=== PATIENT | male | born 1965 | race Caucasian/White ===

== ENCOUNTER 2019-09-23 10:12 | Emergency (ER) | payer BC ==
[2019-09-23 10:23] VITALS: BP 166/90
--- NOTE | 2019-09-23 10:52 | ED Physician Documentation ---
History of Present Illness - Stated complaint Stated Complaint: R LEG PX - Chief complaint Chief Complaint: Ext Problem - History obtained from History obtained from: Patient - History of Present Illness Timing: Today Pain level max: 0 Pain level now: 0 - Additonal information Additional information: Patient with a right lower extremity DVT. He is out of his Eliquis and requesting a refill. No shortness of breath. No chest pain. Nothing makes it better or worse. Review of Systems Constitutional: denies: Fever, Chills Respiratory: denies: Cough GI: denies: Nausea, Vomiting, Diarrhea Skin: denies: Rash Musculoskeletal: denies: Neck pain, Back pain Neurologic: denies: Headache PD PAST MEDICAL HISTORY - Past Medical History Past Medical History: Yes Cardiovascular: Deep vein thrombosis Endocrine/Autoimmune: Type 1 diabetes - Present Medications Home Medications: Ambulatory Orders Medication Instructions Recorded Confirmed Apixaban [Eliquis] 5 mg PO BID #60 tablet 09/23/19 Insulin Glargine [Lantus Solostar] 20 unit SQ DAILY PM 09/23/19 09/23/19 metFORMIN [Glucophage] 500 mg PO BIDWM 09/23/19 09/23/19 - Allergies Allergies/Adverse Reactions: Allergies Allergy/AdvReac Type Severity Reaction Status Date / Time No Known Drug Allergies Allergy Verified 09/23/19 10:22 - Living Situation Living Arrangement: reports: At home - Family History Family history: reports: Non contributory PD ED PE NORMAL - Vitals Vital signs reviewed: Yes - General General: Alert and oriented X 3, No acute distress, Well developed/nourished - HEENT HEENT: Moist mucous membranes - Neck Neck: Supple, no meningeal sign - Derm Derm: Warm and dry - Extremities Extremities: No edema, No calf tenderness / cord - Neuro Neuro: Alert and oriented X 3 - Psych Psych: Normal mood, Normal affect Results - Vitals Vitals: Vital Signs - 24 hr 09/23/19 10:19 Temperature 36.8 C Heart Rate 79 Respiratory 17 Rate Blood Pressure 166/90 H O2 Saturation 100 Oxygen O2 Source Room air PD MEDICAL DECISION MAKING - ED course Complexity details: considered differential, d/w patient ED course: We will give him a month supply of his Eliquis [place] No other acute emergency medical condition at this time. This document was made in part using voice recognition software. While efforts are made to proofread this document, sound alike and grammatical errors may occur. Departure - Departure Disposition: 01 Home, Self Care Clinical Impression: Deep vein thrombosis Qualifiers: DVT location: lower extremity Affected thrombotic vein of extremity: femoral Chronicity: acute Laterality: right Qualified Code(s): I82.411 - Acute embolism and thrombosis of right femoral vein Condition: Good Instructions: ED DVT Follow-Up: [facility] [Provider Group] [facility] [Provider Group] Prescriptions: Apixaban [Eliquis] 5 mg PO BID #60 tablet Comments: Continue the Eliquis at home. Follow-up with a primary care provider within the next month for further care. Return if you worsen. Discharge Date/Time: 09/23/19 10:59
== END 2019-09-23 10:59 | disposition home or self-care (01) ==
LOC: ED 10:12
DX: I82.411 Acute embolism and thrombosis of right femoral vein (principal); Z79.01 Long term (current) use of anticoagulants; Z76.0 Encounter for issue of repeat prescription; E10.9 Type 1 diabetes mellitus without complications
CPT/HCPCS: 99282; 99284

== ENCOUNTER 2019-12-27 23:34 | Emergency (ER) | payer BC ==
--- NOTE | 2019-12-28 00:26 | ED Physician Documentation ---
PD HPI SKIN - Stated complaint Stated Complaint: R FOOT INFECTION - Chief complaint Chief Complaint: Ext Problem - History obtained from History obtained from: Patient - History of Present Illness Timing - onset: How many weeks ago (He has had a poorly healing ulcer on the dorsum of the right great toe for months. He was seen couple weeks ago with redness around the area. He states he is also out of his medications including Lantus and insulin. He had had less redness to it and was looking better. Off antibiotics now.) Timing - details: Gradual onset, Still present Location: RLE (great toe dorsally) Quality / character: Painful, Discolored (redness for several days), Draining (mildly). No: Swelling Associated symptoms: No: Fever, Myalgias, N/V/D Similar symptoms before: Diagnosis (chronic ulcer of toe.) Recently seen: Emergency Dept. No: Clinic (has not made appt with local PCP as yet. Was unable to get Rx filled from recent ER visit as his insurance did not cover it, so only got the antibiotic.) Review of Systems Constitutional: reports: Myalgias. denies: Fever, Chills Nose: denies: Rhinorrhea / runny nose, Congestion Throat: denies: Sore throat Respiratory: denies: Cough GI: denies: Nausea, Vomiting, Constipation, Diarrhea : denies: Dysuria, Frequency PD PAST MEDICAL HISTORY - Past Medical History Past Medical History: No Cardiovascular: Deep vein thrombosis Respiratory: None Neuro: None Endocrine/Autoimmune: Type 1 diabetes GI: None : None HEENT: None Psych: None Musculoskeletal: None, Other (no history of gout. ) - Past Surgical History Past Surgical History: Yes - Present Medications Home Medications: Ambulatory Orders Medication Instructions Recorded Confirmed Apixaban [Eliquis] 5 mg PO BID #60 tablet 11/06/19 Clindamycin HCl [Clindamycin 300MG 300 mg PO Q6H #40 capsule 11/06/19 CAP] Lisinopril [Prinivil] 10 mg PO DAILY #30 tab 11/06/19 metFORMIN [Glucophage] 500 mg PO BIDWM #60 tab 11/06/19 Doxycycline Monohydrate 100 mg PO BID #20 tablet 12/28/19 Insulin Glargine [Lantus Solostar] 20 unit SQ DAILY PM #1 unit 09/16/20 Mupirocin 1 applic TP TID #15 g 12/28/19 - Allergies Allergies/Adverse Reactions: Allergies Allergy/AdvReac Type Severity Reaction Status Date / Time No Known Drug Allergies Allergy Verified 12/28/19 00:05 - Social History Does the pt smoke?: Yes Smoking Status: Current every day smoker Does the pt drink ETOH?: No Does the pt have substance abuse?: No - Immunizations Immunizations are current?: Yes - POLST Patient has POLST: No PD ED PE NORMAL - Vitals Vital signs reviewed: Yes - General General: Alert and oriented X 3, No acute distress, Well developed/nourished - Cardiac Cardiac: RRR, No murmur - Respiratory Respiratory: Clear bilaterally - Derm Derm: Normal color, Warm and dry - Extremities Extremities: Other (Dorsum of the right great toe shows a 1 cm diameter ulcerative lesion to the fatty tissue with some skin at the edge that I trimmed away. Faint moisture discharge in the recess. Culture obtained. There is surrounding redness and swelling of the toe and the dorsum of the foot.) - Neuro Neuro: Alert and oriented X 3, No motor deficit, Normal speech, Other (moderately less sensation in feet generally. No edema of legs. ) Results - Vitals Vitals: Vital Signs - 24 hr 12/27/19 12/28/19 12/28/19 23:58 00:42 02:03 Temperature 36.9 C 36.8 C Heart Rate 76 69 Respiratory 14 16 18 Rate Blood Pressure 165/86 H 127/68 O2 Saturation 98 100 12/28/19 02:37 Temperature Heart Rate Respiratory 17 Rate Blood Pressure O2 Saturation Oxygen O2 Source Room air - Labs Labs: Microbiology 12/28/19 00:35 Wound Culture - Preliminary Toe - Right Big Laboratory Tests 12/28/19 12/28/19 12/28/19 00:50 00:50 00:50 WBC 10.4 RBC 5.17 Hgb 15.4 Hct 44.7 MCV 86.5 MCH 29.8 MCHC 34.5 RDW 11.7 L Plt Count 223 MPV 10.3 Neut # (Auto) 6.9 H Lymph # (Auto) 2.7 [place] # (Auto) 0.5 Eos # (Auto) 0.2 Baso # (Auto) 0.1 Absolute Nucleated RBC 0.00 Nucleated RBC % 0.0 ESR 25 H Sodium 133 L Potassium 4.1 Chloride 98 L Carbon Dioxide 26 Anion Gap 9.0 BUN 11 Creatinine 0.8 Estimated GFR (MDRD) 101 Glucose 445 H Calcium 9.2 Magnesium 1.9 Total Bilirubin 0.4 AST 12 ALT 15 Alkaline Phosphatase 112 Total Protein 6.8 Albumin 3.4 Globulin 3.4 Albumin/Globulin Ratio 1.0 Lipase 83 H - Rads (name of study) toe Radiology: Prelim report reviewed (no bony lesions), See rad report PD MEDICAL DECISION MAKING - ED course Complexity details: reviewed results, considered differential, d/w patient Departure - Departure Disposition: 01 Home, Self Care Clinical Impression: Hyperglycemia, Cellulitis of foot Diabetes Qualifiers: Diabetes mellitus type: type 2 Diabetes mellitus intermodal owner operator truck driver insulin use: with intermodal owner operator truck driver use Diabetes mellitus complication status: with skin complications Diabetes mellitus complication detail: with foot ulcer Qualified Code(s): E11.621 - Type 2 diabetes mellitus with foot ulcer Toe ulcer due to DM Qualifiers: Diabetes mellitus type: type 2 Laterality: right Non-pressure ulcer stage: with fat layer exposed Qualified Code(s): E11.621 - Type 2 diabetes mellitus with foot ulcer Condition: Stable Record reviewed to determine appropriate education?: Yes Instructions: Diabetic Foot Ulcer Dc, ED Infec Skin Cellulitis Follow-Up: [facility] [Provider Group] [facility] [Provider Group] Prescriptions: Doxycycline Monohydrate 100 mg PO BID #20 tablet Insulin Glargine [Lantus Solostar] 20 unit SQ DAILY PM #1 unit Mupirocin 1 applic TP TID #15 g Comments: Warm soaks for the foot couple of times a day. Apply mupirocin antibiotic ointment lightly to the area with dry dressing. Doxycycline antibiotic twice daily for the next 10 days. The culture we did of the toe should result in a couple of days and will tell us if we need to change the antibiotics. We will call you if we need to change them. Follow-up with a local primary care, call for soonest appointments and I provided a couple of clinic numbers. 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 I understand issue with the insurance coverage but your blood sugar is fairly high and the high sugars inhibit healing of the wound. Recheck if not improving over the next several days or worsening, otherwise follow-up with primary care. Discharge Date/Time: 12/28/19 02:38
[2019-12-28] MEDS: NAPROXEN 250 MG TABLET PO STA (00:52)
[2019-12-28] MEDS: DOXYCYCLINE 100 MG TABLET PO STA (00:52)
[2019-12-28] MEDS: MUPIROCIN 2% OINT 1 GM TOP STA (00:53)
[2019-12-28 01:02] LABS: BASOPHILS # (AUTO) 0.1 10^3/uL (0.0-0.1); BASOPHILS % (AUTO) 0.8 %; EOSINOPHILS # (AUTO) 0.2 10^3/uL (0.0-0.7); EOSINOPHILS % (AUTO) 2.3 %; HGB - HEMOGLOBIN 15.4 g/dL (14.0-18.0); LYMPHOCYTES # (AUTO) 2.7 10^3/uL (1.5-3.5); LYMPHOCYTES % (AUTO) 26.1 %; MEAN CORPUSCULAR HEMOGLOBIN 29.8 pg (27.0-31.0); MEAN CORPUSCULAR HGB CONC 34.5 g/dL (32.0-36.0); MEAN CORPUSCULAR VOLUME 86.5 fL (80.0-94.0); MEAN PLATELET VOLUME 10.3 fL (7.4-11.4); MONOCYTES # (AUTO) 0.5 10^3/uL (0.0-1.0); MONOCYTES % (AUTO) 4.8 %; NEUTROPHILS # (AUTO) 6.9 10^3/uL (1.5-6.6); NEUTROPHILS % (AUTO) 65.7 %; PLT - PLATELET COUNT 223 10^3/uL (130-450); RED BLOOD COUNT 5.17 10^6/uL (4.70-6.10); RED CELL DISTRIBUTION WIDTH 11.7 % (12.0-15.0); WHITE BLOOD COUNT 10.4 x10^3/uL (4.8-10.8)
[2019-12-28 01:14] LABS: ALBUMIN 3.4 g/dL (3.2-5.5); BILIRUBIN,TOTAL 0.4 mg/dL (0.2-1.0); CALCIUM 9.2 mg/dL (8.5-10.3); CREATININE 0.8 mg/dL (0.6-1.2); MAGNESIUM 1.9 mg/dL (1.7-2.8); TOTAL PROTEIN 6.8 g/dL (6.7-8.2)
[2019-12-28 02:04] VITALS: BP 127/68
--- NOTE | 2019-12-28 08:26 | XRAY Report ---
PROCEDURE: Toe(s) RT INDICATIONS: chronic great toe infection TECHNIQUE: 3 views of the first toe(s) acquired. COMPARISON: None FINDINGS: Bones: No fractures or dislocations. No suspicious bony lesions. Soft tissues: No suspicious soft tissue densities. IMPRESSION: No visualized erosions. No visualized acute fracture or dislocation. However, occult injury cannot be excluded. Recommend short interval imaging follow-up in 7-10 days as clinically indicated for additi onal evaluation. Reviewed by: Jacqui Brown MD on 12/28/2019 8:25 AM PDT Approved by: Jacqui Brown MD on 12/28/2019 8:25 AM PDT Station ID: [id number]
[2019-12-28 11:51] LABS: HEMOGLOBIN A1c% 12.5 % (4.27-6.07)
== END 2019-12-28 02:38 | disposition home or self-care (01) ==
LOC: ED 23:34
DX: L03.031 Cellulitis of right toe (principal); E11.621 Type 2 diabetes mellitus with foot ulcer; L97.512 Non-pressure chronic ulcer of other part of right foot with fat layer exposed; E11.65 Type 2 diabetes mellitus with hyperglycemia; Z79.4 Long term (current) use of insulin; F17.200 Nicotine dependence, unspecified, uncomplicated; Z86.718 Personal history of other venous thrombosis and embolism; Z79.01 Long term (current) use of anticoagulants; Z79.84 Long term (current) use of oral hypoglycemic drugs
CPT/HCPCS: 36415; 73660; 80053; 83036; 83690; 83735; 85025; 85651; 87070; 87205; 99283; 99284; A9270; 87077

== ENCOUNTER 2020-10-06 18:54 | Emergency (ER) | payer BC ==
[2020-10-06 19:16] VITALS: BP 142/79
[2020-10-06] MEDS ORDERED: HYDROcod/ACET 5/325 Prepack 4 PO STA (19:45)
[2020-10-06] MEDS ORDERED: AMOX/CLAV 875 MG/125 MG TABLET PO STA (19:45)
--- NOTE | 2020-10-06 19:47 | ED Physician Documentation ---
History of Present Illness - Stated complaint Stated Complaint: MOUTH PX/SWELLING - Chief complaint Chief Complaint: Heent - History obtained from History obtained from: Patient - Additonal information Additional information: 55-year-old gentleman has been having ongoing issues with dental pain, unable to see a dentist. Last 4 days pain from left maxillary canine has been severe with sensation of swelling there but no fevers. 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 - Past Surgical History Past Surgical History: Yes - Present Medications Home Medications: Ambulatory Orders Medication Instructions Recorded Confirmed Apixaban [Eliquis] 5 mg PO BID #60 tablet 11/06/19 Clindamycin HCl [Clindamycin 300MG 300 mg PO Q6H #40 capsule 11/06/19 CAP] lisinopriL [Prinivil] 10 mg PO DAILY #30 tab 11/06/19 metFORMIN [Glucophage] 500 mg PO BIDWM #60 tab 11/06/19 Doxycycline Monohydrate 100 mg PO BID #20 tablet 12/28/19 Insulin Glargine [Lantus Solostar] 20 unit SQ DAILY PM #1 unit 12/28/19 Mupirocin 1 applic TP TID #15 g 12/28/19 Amox/Clav 875/125 [Augmentin] 1 each PO Q12H #20 tablet 10/06/20 HYDROcod/ACETAM 5/325 [Arvilla 5/325] 1 - 2 tab PO Q6H PRN #15 tablet 10/06/20 - Allergies Allergies/Adverse Reactions: Allergies Allergy/AdvReac Type Severity Reaction Status Date / Time No Known Drug Allergies Allergy Verified 10/06/20 19:13 - Social History Does the pt smoke?: Yes Smoking Status: Current every day smoker Does the pt drink ETOH?: No Does the pt have substance abuse?: No - Immunizations Immunizations are current?: Yes - POLST Patient has POLST: No PD ED PE NORMAL - Vitals Vital signs reviewed: Yes - General General: Alert and oriented X 3, No acute distress - HEENT HEENT: PERRL, EOMI, Other (Generally carious teeth, tender canine on the left maxilla without obvious swelling trismus or facial cellulitis.) - Neck Neck: No bony TTP - Neuro Neuro: Alert and oriented X 3, Normal speech Results - Vitals Vitals: Vital Signs - 24 hr 10/06/20 19:13 Temperature 36.9 C Heart Rate 95 Respiratory 16 Rate Blood Pressure 142/79 H O2 Saturation 95 Oxygen O2 Source Room air PD MEDICAL DECISION MAKING - ED course ED course: I am prescribing a short course of short-acting opioid pain medication for this patient. 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 I have discussed that the opioids are for short term therapy only, and will not be refilled from the ED. Departure - Departure Disposition: 01 Home, Self Care Clinical Impression: Pain due to dental caries Condition: Good Record reviewed to determine appropriate education?: Yes Instructions: ED Tooth Pain Prescriptions: Amox/Clav 875/125 [Augmentin] 1 each PO Q12H #20 tablet HYDROcod/ACETAM 5/325 [Arvilla 5/325] 1 - 2 tab PO Q6H PRN #15 tablet PRN Reason: Pain Comments: It is very important that you follow-up with a dentist. When it comes to dental problems like yours, the emergency department can only offer a short-term solution to your long-term problem. A couple of low cost options for dental care include: [facility] in [place], calls [phone] for an appointment Or [facility] in [place], call [phone] for an appointment. I am prescribing a short course of narcotic pain medication for you. These are potentially dangerous and addictive medications that should be used carefully. These medications may constipate you. Take an [id number] stool softener (docusate) twice daily with plenty of water while taking these medications. If you go 24 hours without a bowel movement, take [id number] miralax, per package instructions. Do not drink or drive while taking these medications. If you received narcotic or sedating medications while in the emergency department, do not drive for 24 hours. Store this medication in a safe, secure place and out of reach of children. It is a violation of federal law to give or sell this medication to another person or to use in a manner other than prescribed. The ED will not refill narcotic prescriptions, including prescriptions lost or stolen. To dispose of unwanted medications: 1. [facility] at [address] in [place] has a medication drop box. They accept prescription medications (in pill form) Thursday through Thursday 9:00 a.m. to 5:00 p.m. 2. [facility] accepts prescription medications (in pill form only) for disposal year round. Call for more information. 3. Contact the [facility] for the next [facility] sponsored prescription drug collection event. , [phone], or [phone]; Note that many narcotic pain relievers also contain Tylenol/acetaminophen. Please ensure that your total dose of acetaminophen from all sources does not exceed 3 g (3000 mg) per day.
== END 2020-10-06 20:03 | disposition home or self-care (01) ==
LOC: ED 18:54
DX: K02.9 Dental caries, unspecified (principal); Z86.718 Personal history of other venous thrombosis and embolism; Z79.01 Long term (current) use of anticoagulants; E11.9 Type 2 diabetes mellitus without complications; Z79.84 Long term (current) use of oral hypoglycemic drugs; F17.200 Nicotine dependence, unspecified, uncomplicated
CPT/HCPCS: 99282; 99283; A9270

== ENCOUNTER 2020-11-14 00:53 | Emergency (ER) | payer BC ==
[2020-11-14] MEDS ORDERED: ACETAMINOPHEN 325 MG TABLET PO STA (00:56)
[2020-11-14] MEDS ORDERED: ACETAMINOPHEN 325 MG TABLET PO ONE (01:23)
[2020-11-14] MEDS ORDERED: oxyCODONE/ACET 5/325 Prepack 4 PO STA (01:32)
[2020-11-14] MEDS ORDERED: KETOROLAC 30 MG/ML VIAL IM STA (01:32)
--- NOTE | 2020-11-14 01:34 | ED Physician Documentation ---
History of Present Illness - Stated complaint Stated Complaint: TOOTH PX - Chief complaint Chief Complaint: Heent - History obtained from History obtained from: Patient - Additonal information Additional information: 55-year-old man with history of chronic dental pain presents with 2 years of throbbing intermittent dental pain that worsened acutely this evening said he cannot sleep. He states it is worse in the right lower teeth and the left upper teeth are he has multiple broken and rotten teeth. denies fevers, difficulty with secretions, soa, throat tightness or swelling. Review of Systems Throat: reports: Dental pain / toothache PD PAST MEDICAL HISTORY - Past Medical History Past Medical History: Yes Cardiovascular: Deep vein thrombosis Respiratory: None Neuro: None Endocrine/Autoimmune: Type 2 diabetes GI: None : None HEENT: None Psych: None Musculoskeletal: None, Other - Past Surgical History Past Surgical History: Yes - Present Medications Home Medications: Ambulatory Orders Medication Instructions Recorded Confirmed lisinopriL [Prinivil] 10 mg PO DAILY #30 tab 11/06/19 metFORMIN [Glucophage] 500 mg PO BIDWM #60 tab 11/06/19 Insulin Glargine [Lantus Solostar] 20 unit SQ DAILY PM #1 unit 12/28/19 - Allergies Allergies/Adverse Reactions: Allergies Allergy/AdvReac Type Severity Reaction Status Date / Time No Known Drug Allergies Allergy Verified 11/14/20 01:17 - Social History Does the pt smoke?: Yes Smoking Status: Current every day smoker Does the pt drink ETOH?: No Does the pt have substance abuse?: No - Immunizations Immunizations are current?: Yes - POLST Patient has POLST: No PD ED PE NORMAL - Vitals Vital signs reviewed: Yes - General General: Alert and oriented X 3, No acute distress, Well developed/nourished - HEENT HEENT: Atraumatic, PERRL, EOMI, Other (Extremely poor dentition with multiple cracked teeth and an aphthous ulcer evident in the left upper first molar periodontal area) - Respiratory Respiratory: Other (Breathing normally, tolerating secretions.) Results - Vitals Vitals: Vital Signs - 24 hr 11/14/20 01:06 Temperature 36.9 C Heart Rate 69 Respiratory 16 Rate Blood Pressure 138/69 H O2 Saturation 98 Oxygen O2 Source Room air PD MEDICAL DECISION MAKING - ED course ED course: Offered periodontal block but patient declined, stating that he has concerns about needles and mouth. Provided pain medication for him to go home with to tide him over tonight until he can get into see a dentist. Strict return precautions given. Patient will follow up outpatient. Departure - Departure Disposition: 01 Home, Self Care Clinical Impression: Pain, dental, Aphthous ulcer of mouth Condition: Good Instructions: ED Tooth Pain Comments: You were seen in the emergency department for dental pain and found to have an aphthous ulcer in the gingiva of your mouth near a bad tooth. You need to see a dentist as soon as possible. Please return to the emergency department if you experience a temperature higher than 100.4, have difficulty breathing, or have any other concerns or new or worsening symptoms.
[2020-11-14 01:48] VITALS: BP 133/62
== END 2020-11-14 01:48 | disposition home or self-care (01) ==
LOC: ED 00:53
DX: Z86.718 Personal history of other venous thrombosis and embolism (principal); Z79.4 Long term (current) use of insulin; E11.9 Type 2 diabetes mellitus without complications; K12.0 Recurrent oral aphthae; F17.200 Nicotine dependence, unspecified, uncomplicated
CPT/HCPCS: 96372; 99281; 99283; A9270

== ENCOUNTER 2021-04-23 19:06 | Emergency (ER) | payer BC ==
[2021-04-23] MEDS ORDERED: ONDANSETRON 4 MG/2 ML VIAL IVP STA (19:34)
[2021-04-23] MEDS ORDERED: SODIUM CHLORIDE 0.9% 1,000 ML IV STA (19:35)
[2021-04-23 19:43] LABS: BASOPHILS % (AUTO) 0.2 %; EOSINOPHILS % (AUTO) 0.2 %; HCT - HEMATOCRIT 46.3 % (42.0-52.0); HGB - HEMOGLOBIN 17.2 g/dL (14.0-18.0); LYMPHOCYTES # (AUTO) 2.2 10^3/uL (1.5-3.5); LYMPHOCYTES % (AUTO) 13.7 %; MEAN CORPUSCULAR HEMOGLOBIN 30.4 pg (27.0-31.0); MEAN CORPUSCULAR HGB CONC 37.1 g/dL (32.0-36.0); MEAN CORPUSCULAR VOLUME 81.8 fL (80.0-94.0); MEAN PLATELET VOLUME 11.2 fL (7.4-11.4); MONOCYTES # (AUTO) 0.9 10^3/uL (0.0-1.0); MONOCYTES % (AUTO) 5.5 %; NEUTROPHILS # (AUTO) 12.9 10^3/uL (1.5-6.6); NEUTROPHILS % (AUTO) 79.8 %; PLT - PLATELET COUNT 229 10^3/uL (130-450); RED BLOOD COUNT 5.66 10^6/uL (4.70-6.10); RED CELL DISTRIBUTION WIDTH 11.9 % (12.0-15.0); WHITE BLOOD COUNT 16.2 x10^3/uL (4.8-10.8)
[2021-04-23 19:51] LABS: VBG BASE EXCESS 2.6 mmol/L (-2 - +2); VBG OXYGEN SATURATION 75.1 % (60-80); VBG PCO2 26.3 mmHg (41-51); VBG PH 7.56 (7.31-7.41); VBG PO2 33.2 mmHg (25-47); VBG TOTAL CO2 23.8 mmol/L (24-29)
[2021-04-23 20:03] LABS: ALBUMIN 3.8 g/dL (3.2-5.5); ALBUMIN/GLOBULIN RATIO 1.1 (1.0-2.2); ALKALINE PHOSPHATASE 91 IU/L (42-121); ALT ALANINE AMINOTRANSFERASE 17 IU/L (10-60); AST ASPARTATE AMINOTRANSFERASE 16 IU/L (10-42); BILIRUBIN,TOTAL 1.2 mg/dL (0.2-1.0); BUN - BLOOD UREA NITROGEN 24 mg/dL (6-20); CALCIUM 8.9 mg/dL (8.5-10.3); CARBON DIOXIDE - CO2 23 mmol/L (21-32); CHLORIDE 93 mmol/L (101-111); GFR - MDRD 78 (>89); GLUCOSE 328 mg/dL (70-100); LIPASE 28 U/L (22-51); POTASSIUM 3.9 mmol/L (3.5-5.0); SODIUM 129 mmol/L (135-145); TOTAL PROTEIN 7.2 g/dL (6.7-8.2)
[2021-04-23 20:05] LABS: KETONES, SERUM (ACETEST) NEGATIVE (NEGATIVE)
[2021-04-23] MEDS ORDERED: iohexoL-300 100 ML VIAL ONE (22:45)
[2021-04-23] MEDS ORDERED: iohexoL-300 100 ML VIAL IVP ONE (23:05)
--- NOTE | 2021-04-23 23:52 | CT Report ---
PROCEDURE: Abdomen/Pelvis W INDICATIONS: abd pain n/v chills CONTRAST: IV CONTRAST: Isovue 300 ml: 100 PO CONTRAST: *NO PO CONTRAST TECHNIQUE: After the administration of weight appropriate dose of intravenous contrast, 5 mm thick sections acqu ired from the diaphragms to the symphysis. 5 mm thick coronal and sagittal reformats were acquired. For radiation dose reduction, the following was used: automated exposure control, adjustment of mA and/or kV according to patient size. COMPARISON: None. FINDINGS: Image quality: Excellent. ABDOMEN: Lung bases: Possible volume averaging versus small 4 mm pulmonary nodule in the right upper lobe seen on image 5/series 4. Heart size is normal. Solid organs: Liver and spleen are normal in size and enhancement. Hepatic steatosis. Gallbladder i s unremarkable. Biliary system is non dilated. Pancreas enhances normally. No adrenal nodules. Ki dneys demonstrate normal size and enhancement, without hydronephrosis. Peritoneum and bowel: Bowel loops demonstrate normal wall thickness and caliber. No free fluid or a ir. Visualized appendix appears normal. Nodes and vessels: No retroperitoneal or mesenteric adenopathy by size criteria. Aorta and inferior vena cava are normal in size. Densely scattered atherosclerotic calcifications of the abdominal aort a and iliac vessels with short segment of high-grade stenosis involving the proximal right common bonny ac artery just distal to the bifurcation. Miscellaneous: No ventral hernias. PELVIS: Genitourinary: Bladder wall thickness is normal. Prostatomegaly with coarse internal calcifications . Miscellaneous: No inguinal hernias or adenopathy. Bones: No suspicious bony lesions. No acute vertebral body compression fractures. IMPRESSION: 1. CT abdomen and pelvis without acute abnormalities to explain patient's symptoms. Normal-appearing appendix. 2. Hepatic steatosis. 3. Extensive atherosclerotic vascular disease of the abdominal aorta and iliac vessels without eviden ce for aneurysmal dilatation. However, there is a short segment of severe/high-grade stenosis involvi ng the proximal right common iliac artery. Recommend clinical correlation for symptoms of right lower extremity claudication. Consider further evaluation with outpatient vascular studies. 4. Possible 4 mm right upper lobe pulmonary nodule. Reviewed by: Tyrell Merida MD on 04/23/2021 11:50 PM PST Approved by: Tyrell Merida MD on 04/23/2021 11:50 PM PST Station ID: [id number]
[2021-04-24 01:05] VITALS: BP 124/79
[2021-04-24] MEDS ORDERED: FAMOTIDINE 20 MG/2 ML VIAL IVP STA (01:15)
[2021-04-24] MEDS ORDERED: ONDANSETRON ODT 4 MG Prepack 2 TL PRN (01:15)
--- NOTE | 2021-04-24 01:20 | ED Physician Documentation ---
PD HPI ABD PAIN - Stated complaint Stated Complaint: VOM/ABD PX/CHILLS - Chief complaint Chief Complaint: Abd Pain - History obtained from History obtained from: Patient - Additional information Additional information: 55-year-old male with past medical history of type 2 diabetes presents with likely viral syndrome for the past 3 to 4 days with body aches, nausea and vomiting that is nonbloody nonbilious, and 1 loose stool. also with diffuse gradual onset abd discomfort, better with taking baths, aching, mostly in epigastrium, worse with vomiting. unsure of fevers. Patient received J&J vaccine but never received a booster. Unsure of sick contacts. Review of Systems Ten Systems: 10 systems reviewed and negative Constitutional: reports: Myalgias, Fatigue Cardiac: denies: Chest pain / pressure Respiratory: denies: Dyspnea, Cough GI: reports: Abdominal Pain, Nausea, Vomiting, Diarrhea : denies: Dysuria, Frequency, Hematuria Skin: denies: Rash PD PAST MEDICAL HISTORY - Past Medical History Past Medical History: Yes Cardiovascular: Deep vein thrombosis Respiratory: None Neuro: None Endocrine/Autoimmune: Type 2 diabetes GI: None : None HEENT: None Psych: None Musculoskeletal: None, Other - Past Surgical History Past Surgical History: Yes - Present Medications Home Medications: Ambulatory Orders Medication Instructions Recorded Confirmed lisinopriL [Prinivil] 10 mg PO DAILY #30 tab 11/06/19 metFORMIN [Glucophage] 500 mg PO BIDWM #60 tab 11/06/19 Insulin Glargine [Lantus Solostar] 20 unit SQ DAILY PM #1 unit 12/28/19 Ondansetron Odt [Zofran Odt] 4 mg TL Q6H PRN #10 tablet 04/24/21 - Allergies Allergies/Adverse Reactions: Allergies Allergy/AdvReac Type Severity Reaction Status Date / Time No Known Drug Allergies Allergy Verified 04/23/21 19:11 - Social History Does the pt smoke?: Yes Smoking Status: Current every day smoker Does the pt drink ETOH?: No Does the pt have substance abuse?: No - Immunizations Immunizations are current?: Yes - POLST Patient has POLST: No PD ED PE NORMAL - Vitals Vital signs reviewed: Yes - General General: Alert and oriented X 3, No acute distress, Well developed/nourished - HEENT HEENT: Atraumatic, PERRL, EOMI - Neck Neck: Supple, no meningeal sign - Cardiac Cardiac: RRR - Respiratory Respiratory: No respiratory distress, Clear bilaterally - Abdomen Abdomen: Non tender, Non distended, Other (discomfort in epigastrium) - Back Back: No CVA TTP - Derm Derm: Normal color, Warm and dry - Extremities Extremities: No deformity - Neuro Neuro: Alert and oriented X 3, No motor deficit, No sensory deficit - Psych Psych: Normal mood, Normal affect Results - Vitals Vitals: Vital Signs - 24 hr 04/23/21 04/23/21 04/23/21 19:11 22:32 23:13 Temperature 36.5 C 36.7 C Heart Rate 75 60 62 Respiratory 16 18 18 Rate Blood Pressure 144/67 H 135/71 H 149/73 H O2 Saturation 98 98 94 04/24/21 01:00 Temperature 36.8 C Heart Rate 64 Respiratory 18 Rate Blood Pressure 124/79 O2 Saturation 97 Oxygen O2 Source Room air - Labs Labs: Laboratory Tests 04/23/21 04/23/21 04/23/21 19:37 19:37 19:47 WBC 16.2 H RBC 5.66 Hgb 17.2 Hct 46.3 MCV 81.8 MCH 30.4 MCHC 37.1 H RDW 11.9 L Plt Count 229 MPV 11.2 Neut # (Auto) 12.9 H Lymph # (Auto) 2.2 [place] # (Auto) 0.9 Eos # (Auto) 0.0 Baso # (Auto) 0.0 Absolute Nucleated RBC 0.00 Nucleated RBC % 0.0 VBG pH 7.560 H VBG pCO2 26.3 L VBG pO2 33.2 VBG HCO3 23.0 VBG Total CO2 23.8 L VBG O2 Saturation 75.1 VBG Base Excess 2.6 H Sodium 129 L Potassium 3.9 Chloride 93 L Carbon Dioxide 23 Anion Gap 13.0 BUN 24 H Creatinine 1.0 Estimated GFR (MDRD) 78 L Glucose 328 H Calcium 8.9 Total Bilirubin 1.2 H AST 16 ALT 17 Alkaline Phosphatase 91 Total Protein 7.2 Albumin 3.8 Globulin 3.4 Albumin/Globulin Ratio 1.1 Lipase 28 Serum Ketones NEGATIVE PD MEDICAL DECISION MAKING - ED course ED course: 55-year-old male with past medical history of type 2 diabetes presents with likely viral syndrome for the past 3 to 4 days with body aches, nausea and vomiting that is nonbloody nonbilious, and 1 loose stool. Patient received J&J vaccine but never received a booster. Unsure of sick contacts. COVID test sent. Patient tolerating p.o., feeling better after symptomatic care was provided in the emergency department. Discussed incidental findings on CTAP including pulmonary nodule and need for f/u. Return precautions given. Plan for him to follow-up with a primary doctor. Patient states that he is currently between doctors therefore I will have him follow-up with [facility] and recommended a couple of primary doctors. Departure - Departure Disposition: Home, Self Care Clinical Impression: Vomiting, Diarrhea, Abdominal pain Condition: Stable Instructions: ED Nausea Vomiting Prescriptions: Ondansetron Odt [Zofran Odt] 4 mg TL Q6H PRN #10 tablet PRN Reason: Nausea / Vomiting Comments: You are seen in the emergency department for vomiting, abdominal pain, body aches and 1 loose stool. A covid test was sent that will result in 2-3 days. You can view the result on your patient health portal on the [facility] website. Please return to the emergency department if you have new or worsening symptoms or other concerns. Follow up with a primary doctor in regards to the nodule (spot) on your right lung, since you will need follow up imaging to make sure it hasn't grown. [facility] at [address] [facility] CLINIC HOURS: Open 7 days a week: Thursday - Thursday 7:00 am to 7:00 pm Thursday 9:00 am to 4:00 pm Sundays Noon to 4:00 pm
== END 2021-04-24 01:30 | disposition home or self-care (01) ==
LOC: ED 19:06
DX: R10.9 Unspecified abdominal pain (principal); R11.2 Nausea with vomiting, unspecified; R19.7 Diarrhea, unspecified; E11.9 Type 2 diabetes mellitus without complications; Z79.4 Long term (current) use of insulin; F17.200 Nicotine dependence, unspecified, uncomplicated; Z20.822 Contact with and (suspected) exposure to COVID-19
CPT/HCPCS: 36415; 74177; 80053; 82009; 82803; 83690; 85025; 87635; 96361; 96374; 99283; 99284; Q9967

== ENCOUNTER 2022-11-11 18:46 | Emergency (ER) | payer BC ==
[2022-11-11 18:57] VITALS: BP 156/93
--- NOTE | 2022-11-11 18:57 | ED Physician Documentation ---
PD HPI LOWER EXT INJURY - Stated complaint Stated Complaint: R LEG SWELLING - Chief complaint Chief Complaint: Ext Problem - History obtained from History obtained from: Patient - Additional information Additional information: 57-year-old male presents by private vehicle from home for right lower extremity swelling that he noticed when he woke up this morning. Patient has history of diabetes and previous history of DVT, however he is not currently taking any medications because of insurance issues. He states that he used to be on blood thinning medications, but he cannot afford them and insurance not covering them, so he has not been on any anticoagulants in the last 4 to 5 years. He states that he is concerned that he may have another blood clot. Review of Systems Constitutional: denies: Fever, Chills Cardiac: reports: Calf pain. denies: Chest pain / pressure, Palpitations GI: denies: Abdominal Pain, Nausea, Vomiting : denies: Dysuria Skin: denies: Rash, Lesions, Abrasion (s) Musculoskeletal: reports: Extremity pain, Extremity swelling. denies: Neck pain, Back pain, Joint pain PD PAST MEDICAL HISTORY - Past Medical History Cardiovascular: Deep vein thrombosis Respiratory: None Neuro: None Endocrine/Autoimmune: Type 2 diabetes GI: None : None HEENT: None Psych: None Musculoskeletal: None, Other - Past Surgical History Past Surgical History: Yes - Present Medications Home Medications: Ambulatory Orders Medication Instructions Recorded Confirmed No Known Home Medications 11/11/22 11/11/22 - Allergies Allergies/Adverse Reactions: Allergies Allergy/AdvReac Type Severity Reaction Status Date / Time No Known Drug Allergies Allergy Verified 11/11/22 18:52 - Social History Does the pt smoke?: Yes Smoking Status: Current every day smoker Does the pt drink ETOH?: No Does the pt have substance abuse?: No - Immunizations Immunizations are current?: Yes - POLST Patient has POLST: No PD ED PE NORMAL - Vitals Vital signs reviewed: Yes - General General: Alert and oriented X 3, No acute distress, Well developed/nourished - HEENT HEENT: Atraumatic, PERRL, EOMI - Neck Neck: Supple, no meningeal sign - Cardiac Cardiac: RRR, No murmur, Strong equal pulses - Respiratory Respiratory: No respiratory distress, Clear bilaterally - Abdomen Abdomen: Soft, Non tender, Non distended - Extremities Extremities: Other (RLE > LLE. Palpable pulses bilaterally. 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 # (Auto) 0.6 Eos # (Auto) 0.2 Baso # (Auto) 0.1 Absolute Nucleated RBC 0.00 Nucleated RBC % 0.0 PT 11.1 INR 1.0 APTT 30.2 Sodium 133 L Potassium 3.6 Chloride 100 L Carbon Dioxide 28 Anion Gap 5.0 L BUN 11 Creatinine 0.8 Estimated GFR (MDRD) 100 Glucose 403 H Calcium 9.0 Total Bilirubin 0.5 AST 8 L ALT 11 Alkaline Phosphatase 118 Total Protein 6.7 Albumin 3.6 Globulin 3.1 Albumin/Globulin Ratio 1.2 PD Medical Decision Making - ED course Complexity details: reviewed old records, reviewed results, re-evaluated patient, considered differential, d/w patient ED course: 1 day of lower extremity swelling in patient with previous history of DVT, not currently anticoagulated. Patient's right lower extremity is markedly larger in size and left lower extremity. He states that he has chronic neuropathy from his diabetes, however the sensation in his lower extremities is equal bilaterally. Concern is for DVT. Will obtain labs and ultrasound imaging. I was informed by nursing staff that patient eloped from emergency department. I was not able to speak with the patient on the importance of staying for all testing and treatment. Attempts to reach the patient were unsuccessful. Departure - Departure Disposition: ED Elope Clinical Impression: Swelling of lower limb, Eloped from emergency department, Hyperglycemia, Noncompliance with medications, Has health insurance with inadequate coverage of health expenses Condition: Stable Forms: PCP List
[2022-11-11 19:13] LABS: BASOPHILS # (AUTO) 0.1 10^3/uL (0.0-0.1); BASOPHILS % (AUTO) 0.8 %; EOSINOPHILS # (AUTO) 0.2 10^3/uL (0.0-0.7); EOSINOPHILS % (AUTO) 1.9 %; HGB - HEMOGLOBIN 16.4 g/dL (14.0-18.0); LYMPHOCYTES # (AUTO) 2.9 10^3/uL (1.5-3.5); LYMPHOCYTES % (AUTO) 27.2 %; MEAN CORPUSCULAR HEMOGLOBIN 29.7 pg (27.0-31.0); MEAN CORPUSCULAR HGB CONC 34.9 g/dL (32.0-36.0); MEAN PLATELET VOLUME 10.9 fL (7.4-11.4); MONOCYTES # (AUTO) 0.6 10^3/uL (0.0-1.0); MONOCYTES % (AUTO) 5.7 %; NEUTROPHILS # (AUTO) 6.8 10^3/uL (1.5-6.6); NEUTROPHILS % (AUTO) 64.2 %; PLT - PLATELET COUNT 160 10^3/uL (130-450); RED BLOOD COUNT 5.53 10^6/uL (4.70-6.10); RED CELL DISTRIBUTION WIDTH 11.8 % (12.0-15.0); WHITE BLOOD COUNT 10.6 x10^3/uL (4.8-10.8)
[2022-11-11 19:24] LABS: PT - PROTHROMBIN TIME 11.1 secs (9.9-12.6)
[2022-11-11 19:31] LABS: PARTIAL THROMBOPLASTIN TIME 30.2 secs (24.9-33.3)
[2022-11-11 19:38] LABS: ALBUMIN 3.6 g/dL (3.2-5.5); ALBUMIN/GLOBULIN RATIO 1.2 (1.0-2.2); BILIRUBIN,TOTAL 0.5 mg/dL (0.2-1.0); CREATININE 0.8 mg/dL (0.6-1.3); POTASSIUM 3.6 mmol/L (3.5-4.5); TOTAL PROTEIN 6.7 g/dL (6.4-8.9)
== END 2022-11-11 19:55 | disposition left against medical advice (07) ==
LOC: ED 18:46
DX: M79.89 Other specified soft tissue disorders (principal); M79.669 Pain in unspecified lower leg; E11.9 Type 2 diabetes mellitus without complications; F17.200 Nicotine dependence, unspecified, uncomplicated; Z86.718 Personal history of other venous thrombosis and embolism
CPT/HCPCS: 36415; 80053; 85025; 85610; 85730; 99283

== ENCOUNTER 2022-12-19 12:26 | Outpatient (CLI) | payer BC, MEDICAID ==
--- NOTE | 2022-12-19 14:55 | Ultrasound Report ---
PROCEDURE: Duplex Ext Veins Right INDICATIONS: RT LEG EDEMA TECHNIQUE: Real-time imaging, as well as color and pulse Doppler interrogation, were performed of the lower extr emity deep veins from the inguinal ligament to the popliteal fossa. Attempted visualization of the ca lf veins was performed. COMPARISON: None. FINDINGS: There is DVT seen within the common femoral vein extending into the femoral vein and perone al vein. IMPRESSION: Right lower extremity DVT. Reviewed by: Rajiv Curry MD on 12/19/2022 2:53 PM PDT Approved by: Rajiv Curry MD on 12/19/2022 2:53 PM PDT Station ID: [id number]
== END 2022-12-19 12:27 | disposition home or self-care (01) ==
LOC: DI 12:26
PROVIDERS: ATTEND Family Medicine
DX: I82.411 Acute embolism and thrombosis of right femoral vein (principal); I82.451 Acute embolism and thrombosis of right peroneal vein

== ENCOUNTER 2022-12-19 13:31 | Emergency (ER) | payer BC, MEDICAID ==
--- NOTE | 2022-12-19 13:34 | ED Physician Documentation ---
History of Present Illness - Stated complaint Stated Complaint: DVT - History obtained from History obtained from: Patient - Additonal information Additional information: 57-year-old gentleman presents directed over from outpatient ultrasound with a chief complaint of "I do not want to be here, I have dogs in the car and groceries that I need to get out." He has a history of DVT, not sure why. Has been noncompliant with anticoagulants and has had right leg pain for months. He left from the emergency department about a month ago pending work-up for a DVT and had a walk- in clinic appointment yesterday and was brought over from outpatient ultrasound by the [facility] with very large extensive right leg DVT. He denies shortness of breath or chest pain. PD PAST MEDICAL HISTORY - Past Medical History Cardiovascular: Deep vein thrombosis Respiratory: None Neuro: None Endocrine/Autoimmune: Type 2 diabetes GI: None : None HEENT: None Psych: None Musculoskeletal: None, Other - Past Surgical History Past Surgical History: Yes - Present Medications Home Medications: Ambulatory Orders Medication Instructions Recorded Confirmed Rivaroxaban [Xarelto] 15 mg PO DAILY #42 tablet 12/19/22 Rivaroxaban [Xarelto] 20 mg PO DAILY #60 tablet 12/19/22 - Allergies Allergies/Adverse Reactions: Allergies Allergy/AdvReac Type Severity Reaction Status Date / Time No Known Drug Allergies Allergy Verified 12/19/22 13:35 - Social History Does the pt smoke?: Yes Smoking Status: Current every day smoker Does the pt drink ETOH?: No Does the pt have substance abuse?: No - Immunizations Immunizations are current?: Yes - POLST Patient has POLST: No PD ED PE NORMAL - Vitals Vital signs reviewed: Yes - General General: Alert and oriented X 3, No acute distress - Cardiac Cardiac: RRR, No murmur - Respiratory Respiratory: No respiratory distress - Abdomen Abdomen: Non tender - Derm Derm: Normal color, Warm and dry - Extremities Extremities: Other (Asymmetry of the right leg which is swollen and tender. It is not discolored though and has good cap refill in the toes.) - Neuro Neuro: Alert and oriented X 3, Normal speech - Psych Psych: Normal mood, Normal affect Results - Vitals Vitals: Oxygen O2 Source Room air PD Medical Decision Making - ED course ED course: 57-year-old gentleman with second unprovoked DVT and he understands he will need to be on anticoagulation for life we will restart Xarelto as he had no problem with that in the past. Departure - Departure Disposition: 01 Home, Self Care Clinical Impression: Deep vein thrombosis Condition: Good Record reviewed to determine appropriate education?: Yes Instructions: ED DVT Prescriptions: Rivaroxaban [Xarelto] 15 mg PO DAILY #42 tablet Rivaroxaban [Xarelto] 20 mg PO DAILY #60 tablet Comments: As this is your second DVT, we would anticipate that unless something else comes up, you probably need to be on anticoagulation for life. Talk with your primary care physician about this in follow-up, next available appointment. We will restart you on Xarelto, the dose is 15 mg twice a day with food for the first 3 weeks, and then 20 mg a day once a day with food. I would also anticipate that your primary care physician may refer you to a production metal sprayer. This would be to find out why you are having blood clots in the first place. Call your doctor to arrange a follow-up appointment, make the next available appointment. In the interim, return anytime if worse or if new symptoms develop.
--- OUTSIDE RECORDS SUMMARY | 2022-12-19 13:38 | EXTERNAL MEDICAL SUMMARY RPT | Continuity of Care Document ---
Author Name Unknown Address [address] [place] [address] Phone Organization [facility] Address [address] [place] [address] Phone Care Team Providers Care Director Strategic Account Management Name Role Phone Unavailable Unavailable Unavailable Michael Wiseman, Billy Unavailable Unavailable Medications date description facility 2022-12-18 00:00 No Known Medications All Problems date description facility 2022-12-18 00:00 Edema of lower extremity All 2022-12-18 00:00 Edema All 2022-12-18 00:00 Localized edema All Procedures date description facility 2022-12-18 00:00 Visit Code Hold All Social History date description facility 2022-12-18 00:00 Unknown if ever smoked All Vital Signs date measurement value units 2022-12-18 00:00 BMI 21.83 kg/m2 2022-12-18 00:00 BP_diastolic 89 mmHg 2022-12-18 00:00 BP_systolic 152 mmHg 2022-12-18 00:00 heart_rate 102 /min 2022-12-18 00:00 height_metric 187.96 cm 2022-12-18 00:00 height_standard 74 in 2022-12-18 00:00 respiration_rate 16 /min 2022-12-18 00:00 temperature_metric 37.06 C 2022-12-18 00:00 temperature_standard 98.7 F 2022-12-18 00:00 weight_metric 76.83 kg 2022-12-18 00:00 weight_standard 169.38 lb
[2022-12-19 13:43] VITALS: BP 150/80; O2SAT 100
== END 2022-12-19 13:44 | disposition home or self-care (01) ==
LOC: ED 13:31
DX: I82.411 Acute embolism and thrombosis of right femoral vein (principal); I82.451 Acute embolism and thrombosis of right peroneal vein; F17.200 Nicotine dependence, unspecified, uncomplicated
CPT/HCPCS: 99282; 99283